=== PATIENT | female | born 1990 | race Caucasian/White ===

== ENCOUNTER 2016-12-29 16:25 | Emergency (ER) | payer OTHER ==
[~2016-12-29] VITALS: Ht 162.6 cm; Wt 64.4 kg
[~2016-12-29 16:25] MED LIST: BUPRENORPHINE HC8 MG SL; FLAGYL500 MG PO; GABAPENTIN300 MG PO; METHOCARBAMOL500 MG PO; PEN-VEE K,VEET500 MG PO; TOBREX5 ML BOTH EYES
[2016-12-29 16:54] LABS: ADD MIUA? YES; BILIRUBIN NEGATIVE; BLOOD MODERATE; COLOR AMBER ((YELLOW)); GLUCOSE (STRIP) NEGATIVE; KETONES 20; LEUKOCYTES LARGE; NITRITE POSITIVE; PROTEIN (STRIP) 100; SPECIFIC GRAVITY 1.024 (1.000-1.030); UROBILINOGEN 0.2 MG/DL (0.2-1.0)
[2016-12-29 17:09] LABS: HEMATOCRIT 41.6 % (36.0-46.0); MCH 27.9 PG (29.0-34.0); MCHC 32.5 G/DL (30.0-36.0); PLATELET COUNT 243 K/uL (156-360); RBC DIS.WIDTH-CV 13.7 % (11.8-14.6); RBC DIS.WIDTH-SD 42.9 % (39-53); RED BLOOD COUNT 4.84 M/uL (3.80-5.20); WHITE BLOOD COUNT 11.8 K/uL (4.1-10.2)
[2016-12-29 17:12] LABS: BACTERIA 1+ /HPF; CASTS NONE SEEN /LPF; CRYSTALS NONE SEEN; EPITHELIAL CELLS 1+ /HPF; MUCUS NONE SEEN /LPF; UCUL ADDED? YES; WHITE BLOOD CELLS TNTC /HPF (0-5)
[2016-12-29 17:23] LABS: CHLORIDE 106 mEq/L (99-109); POTASSIUM 3.8 mEq/L (3.7-5.4); SODIUM 137 mEq/L (136-147)
[2016-12-29 17:25] LABS: GLUCOSE 155 mg/dL (70-99)
[2016-12-29 17:26] LABS: ANION GAP 5 MEQ/L (2-14)
[2016-12-29 17:27] LABS: TOTAL BILIRUBIN 0.3 mg/dL (0.0-1.0)
[2016-12-29 17:29] LABS: ALKALINE PHOSPHATASE 63 IU/L (3-129); GFR ESTIMATE (CALCULATED) > 59 mL/min/
[2016-12-29 17:30] LABS: UREA NITROGEN (BUN) 12 mg/dL (9-23)
[2016-12-29 17:32] LABS: LIPASE 3 U/L (1.0-51.0)
[2016-12-29 17:40] LABS: QUANTITATIVE HCG < 4.0 MIU/ML
[2016-12-29] MEDS ORDERED: BACTRIM,SEPT1 TABLET PO (18:29)
[2016-12-29] MEDS ORDERED: PERCOCET 5/31 TABLET PO (18:29)
[2016-12-29] MEDS ORDERED: ZOFRAN4 MG PO (18:29)
[2016-12-29 18:42] VITALS: BP 138/83
== END 2016-12-29 18:43 | disposition home or self-care (01) ==
LOC: EME 16:25
PROVIDERS: Physician Assistant
DX: N30.00 Acute cystitis without hematuria (principal); Z87.442 Personal history of urinary calculi; F17.200 Nicotine dependence, unspecified, uncomplicated
CPT/HCPCS: 74176; 80053; 81003; 83690; 84702; 85027; 87077; 87086; 87186; 99281; 99284